=== PATIENT | male | born 1950 | race Caucasian/White ===

== ENCOUNTER → 2018-11-24 | Outpatient (CLI) | payer MEDICARE ==
--- NOTE | 2018-11-24 14:35 | CT ---
EXAMINATION TYPE: CT abdomen pelvis wo con DATE OF EXAM: 11/24/2018 COMPARISON: 01/31/2016 INDICATION: Liver mass DLP: 833.00 mGycm, Automated exposure control for dose reduction was used. CONTRAST: 0 mL of Isovue 300. Study performed without Oral Contrast TECHNIQUE: Axial images were obtained from above the diaphragm to the pubic rami in the axial plane a t 5 mm thick sections. Reconstructed images are reviewed on the computer in the coronal plane. FINDINGS: Limited CT sections are obtained the lung bases. The lung bases are clear. CT ABDOMEN: Liver: No discrete mass or cyst is evident within the liver. Study is without intravenous contrast wh ich may cause limitation. Spleen: Normal Pancreas: Normal Adrenal glands: The adrenal glands are normal. Gallbladder: Normal Kidneys: Perinephric stranding is present bilaterally. No masses are evident. No hydronephrosis is pr esent. There is a 2.3 cm cyst along the inferior medial pole of the left kidney measuring 0 Hounsfi eld units. Delayed images were obtained through the kidneys, which remain unremarkable. Aorta: Vascular calcification is within the aorta. Inferior vena cava: Normal. CT PELVIS: Mesenteric hernia is in the periumbilical region with an opening 1.0 cm. Loops of bowel within the abdomen and pelvis are normal. There are loops of bowel which are incom pletely distended or lack oral contrast limiting their evaluation. Appendix: Not identified. No suspicious tubular structures or inflammatory changes are evident. Urinary bladder: Normal. Genitourinary structures: Prostate is unremarkable. Osseous structures: No suspicious lytic or sclerotic lesions. IMPRESSIONS: 1. No suspicious changes within the liver. Study is noncontrast causing limitation. 2. Left renal cyst.
== END | disposition home or self-care (01) ==
LOC: RADCTMAIN 07:19
PROVIDERS: ATTEND Surgery Plastic and Reconstructive Surgery
DX: N28.1 Cyst of kidney, acquired (principal)
CPT/HCPCS: 74176

== ENCOUNTER 2019-06-17 08:03 | Day surgery (SDC) | payer MEDICARE ==
[2019-06-14 14:03] VITALS: BMI 30.7
--- NOTE | 2019-06-17 07:40 | P.GSHP ---
History of Present Illness H&P Date: 06/17/19 CHIEF COMPLAINT: Colon screen HISTORY OF PRESENT ILLNESS: The patient is a 69-year-old male who presents for colon screen. Lower endoscopy was offered for further evaluation and management. PAST MEDICAL HISTORY: Please see list. PAST SURGICAL HISTORY: Please see list. MEDICATIONS: Please see list. ALLERGIES: Please see list. SOCIAL HISTORY: No illicit drug use FAMILY HISTORY: No reports of Crohn disease or ulcerative colitis. REVIEW OF ORGAN SYSTEMS: CONSTITUTIONAL: No reports of fevers or chills. PHYSICAL EXAM: VITAL SIGNS: Stable GENERAL: Well-developed pleasant in no acute distress. HEENT: No scleral icterus. Extraocular movements grossly intact. Moist buccal mucosa. NECK: Supple without lymphadenopathy. CHEST: Unlabored respirations. Equal bilateral excursions. CARDIOVASCULAR: Regular rate and rhythm. Distal 2+ pulses. ABDOMEN: Soft, nontender, nondistended. MUSCULOSKELETAL: No clubbing, cyanosis, or edema. ASSESSMENT: 1. Colon screen. PLAN: 1. Recommend proceeding with a lower endoscopy Past Medical History Past Medical History: Cancer, GERD/Reflux, Hypertension Additional Past Medical History / Comment(s): gout. prostate cancer. born with heart defect History of Any Multi-Drug Resistant Organisms: None Reported Past Surgical History: Appendectomy, Cholecystectomy, Heart Catheterization, Hernia Repair, Prostate Surgery, Tonsillectomy Additional Past Surgical History / Comment(s): hemorroids Smoking Status: Former smoker - Past Family History Father Family Medical History: Cancer Additional Family Medical History / Comment(s): lung cancer Medications and Allergies Home Medications Medication Instructions Recorded Confirmed Type cloNIDine HCL [Catapres] 0.3 mg PO TID 04/18/14 06/14/19 History Allopurinol [Zyloprim] 100 mg PO BID 06/14/19 06/14/19 History Cholecalciferol [Vitamin D3 (25 1,000 unit PO DAILY 06/14/19 06/14/19 History Mcg = 1000 Iu)] Lisinopril [Zestril] 20 mg PO DAILY 06/14/19 06/14/19 History Metoprolol Succinate (ER) [Toprol 50 mg PO DAILY 06/14/19 06/14/19 History Xl] Multivitamins, Thera [Multivitamin 1 tab PO DAILY 06/14/19 06/14/19 History (formulary)] Omeprazole [PriLOSEC] 40 mg PO DAILY 06/14/19 06/14/19 History predniSONE 10 mg PO DAILY 06/14/19 06/14/19 History Allergies Allergy/AdvReac Type Severity Reaction Status Date / Time No Known Allergies Allergy Verified 06/14/19 13:48
[~2019-06-17 08:03] MED LIST: LACTATED RINGERS 1,000 ML IV SCH
[2019-06-17 08:23] VITALS: TEMP 97.7
[2019-06-17] MEDS ORDERED: LIDOCAINE 1% INJ 10MG/ML (20 ML MDV) ONE (08:33)
[2019-06-17] MEDS ORDERED: LIDOCAINE 1% (10MG/ML) FOR IV START INTRADERMA ONE (08:33)
[2019-06-17] MEDS ORDERED: PROPOFOL 10 MG/ML 20 ML VIAL IV ONE (08:33)
[2019-06-17 08:59] VITALS: RESP 16
[2019-06-17] MEDS ORDERED: SIMETHICONE 80 MG CHEWABLE PO STA (09:17)
[2019-06-17] MEDS ORDERED: METOCLOPRAMIDE 5 MG/ML 2 ML VIAL IVP STA (09:17)
--- NOTE | 2019-06-17 09:27 | P.PCN ---
Date of Procedure: 06/17/19 Description of Procedure: PREOPERATIVE DIAGNOSIS: Colonoscopy screening, first POSTOPERATIVE DIAGNOSIS: Colonoscopy screening, first Internal and external prolapsed hemorrhoid, grade 4 OPERATION: Colonoscopy to the ileocecal valve and appendiceal orifice. SURGEON: Carly Zaragoza MD. ANESTHESIA: MAC. INDICATIONS: The patient is a 69-year-old female who presents for his first colonoscopy screening. Benefits and risks were described and informed consent was obtained. DESCRIPTION OF PROCEDURE: The patient had undergone Suprep. He had been brought into the operating room and laid in the left lateral decubitus position. After adequate intravenous sedation, the rectum was examined with 2% lidocaine jelly. Large external hemorrhoids were encountered of the left lateral cushion. The rectal tone was within normal limits. No lesions were palpated in the rectal vault. An Olympus colonoscope was advanced until the ileocecal valve and appendiceal orifice were clearly viewed. The prep was excellent with clear visualization of the mucosal folds. The scope was removed with visualization of each mucosal fold. No scattered diverticulosis was encountered. No colonic polyps were found. No evidence of focal colitis was found. Retroflexion of the scope demonstrated grade 4 internal hemorrhoids with recent inflammation or bleeding. The colon was desufflated. The patient had tolerated the procedure well. Withdrawal time was over 6 minutes. FINDINGS: Aronchick preparation quality scale 1 (1-5) Internal hemorrhoids, grade 4, left lateral cushion External prolapsed hemorrhoids, grade 4 No arteriovenous malformations. No adenomatous polyps. No focal colitis. No sigmoid diverticulosis RECOMMENDATIONS: Lower endoscopy in 10 years, 2030 or Cologaurd Plan - Discharge Summary Discharge Rx Participant: Yes New Discharge Prescriptions: Continue cloNIDine HCL [Catapres] 0.3 mg PO TID Multivitamins, Thera [Multivitamin (formulary)] 1 tab PO DAILY Cholecalciferol [Vitamin D3 (25 Mcg = 1000 Iu)] 1,000 unit PO DAILY Metoprolol Succinate (ER) [Toprol XL] 50 mg PO DAILY Allopurinol [Zyloprim] 100 mg PO BID Omeprazole [PriLOSEC] 40 mg PO DAILY Lisinopril [Zestril] 20 mg PO DAILY predniSONE 10 mg PO DAILY Discharge Medication List cloNIDine HCL [Catapres] 0.3 mg PO TID 04/18/14 [History] Allopurinol [Zyloprim] 100 mg PO BID 06/14/19 [History] Cholecalciferol [Vitamin D3 (25 Mcg = 1000 Iu)] 1,000 unit PO DAILY 06/14/19 [History] Lisinopril [Zestril] 20 mg PO DAILY 06/14/19 [History] Metoprolol Succinate (ER) [Toprol XL] 50 mg PO DAILY 06/14/19 [History] Multivitamins, Thera [Multivitamin (formulary)] 1 tab PO DAILY 06/14/19 [History] Omeprazole [PriLOSEC] 40 mg PO DAILY 06/14/19 [History] predniSONE 10 mg PO DAILY 06/14/19 [History] Follow up Appointment(s)/Referral(s): Carly Zaragoza MD [STAFF PHYSICIAN] - 06/22/19 Patient Instructions/Handouts: *Surgery [facility] - (Anesthesia) Endoscopy Discharge Instructions, Hemorrhoids (DC), Colonoscopy (DC) Activity/Diet/Wound Care/Special Instructions: Repeat colonoscopy 10 years, 2030 or Cologaurd. Please follow up in office regarding abdominal pain. Discharge Disposition: HOME SELF-CARE
[2019-06-17 09:43] VITALS: BP 168/87; PULSE 60
== END 2019-06-17 09:59 | disposition home or self-care (01) ==
LOC: ORWHC2ENDO 08:03
PROVIDERS: ATTEND Surgery Plastic and Reconstructive Surgery
DX: R19.7 Diarrhea, unspecified (principal); R19.4 Change in bowel habit; K64.3 Fourth degree hemorrhoids; K64.4 Residual hemorrhoidal skin tags; I10 Essential (primary) hypertension; K21.9 Gastro-esophageal reflux disease without esophagitis; M10.9 Gout, unspecified; Z79.52 Long term (current) use of systemic steroids; Z79.899 Other long term (current) drug therapy; Z87.891 Personal history of nicotine dependence; Z85.46 Personal history of malignant neoplasm of prostate; Z90.89 Acquired absence of other organs; Z90.49 Acquired absence of other specified parts of digestive tract; Z98.890 Other specified postprocedural states; Z80.1 Family history of malignant neoplasm of trachea, bronchus and lung
CPT/HCPCS: 45378; J2765; J2001; J2704

== ENCOUNTER → 2019-08-31 | Outpatient (CLI) | payer MEDICARE | END | disposition home or self-care (01) | LOC: LABWHC1 10:09 | PROVIDERS: ATTEND Surgery Plastic and Reconstructive Surgery | DX: Z11.59 Encounter for screening for other viral diseases (principal) | CPT/HCPCS: 87635 ==

== ENCOUNTER 2019-09-02 08:51 | Day surgery (SDC) | payer MEDICARE ==
[2019-09-01 08:28] VITALS: BMI 29.9
--- NOTE | 2019-09-01 21:23 | P.GSHP ---
History of Present Illness H&P Date: 09/02/19 CHIEF COMPLAINT: Ventral hernia HISTORY OF PRESENT ILLNESS: The patient is a 69-year-old male who presents with a history of swelling and pain along the abdomen from a hernia. Now he presents for surgical intervention. PAST MEDICAL HISTORY: Please see list. PAST SURGICAL HISTORY: Please see list. MEDICATIONS: Please see list. ALLERGIES: Please see list. SOCIAL HISTORY: History of alcoholism FAMILY HISTORY: No reports of Crohn disease or ulcerative colitis. REVIEW OF ORGAN SYSTEMS: CONSTITUTIONAL: No reports of fevers or chills. No reports of weight loss despite prior attempts. PHYSICAL EXAM: VITAL SIGNS: Stable GENERAL: Well-developed pleasant male in no acute distress. HEENT: No scleral icterus. Extraocular movements grossly intact. Moist buccal mucosa. NECK: Supple without lymphadenopathy. CHEST: Unlabored respirations. Equal bilateral excursions. CARDIOVASCULAR: Regular rate and rhythm. Distal 2+ pulses. ABDOMEN: Soft, nondistended. Palpable defect of the abdomen. No peritoneal signs. MUSCULOSKELETAL: No clubbing, cyanosis, or edema. ASSESSMENT: 1. Ventral hernia PLAN: 1. Recommend proceeding with robotic ventral hernia repair with mesh. 2. Benefits and risks of surgical intervention was discussed including possibility of open technique. 3. DVT prophylaxis. 4. Antibiotic prophylaxis. 5. He is high risk with history of alcoholism. Past Medical History Past Medical History: Cancer, GERD/Reflux, Hypertension Additional Past Medical History / Comment(s): gout. prostate cancer. born with heart defect History of Any Multi-Drug Resistant Organisms: None Reported Past Surgical History: Appendectomy, Cholecystectomy, Heart Catheterization, Hernia Repair, Prostate Surgery, Tonsillectomy Additional Past Surgical History / Comment(s): hemorrhoid sx. colonoscopy Past Anesthesia/Blood Transfusion Reactions: No Reported Reaction Smoking Status: Former smoker - Past Family History Father Family Medical History: Cancer Additional Family Medical History / Comment(s): lung cancer Medications and Allergies Home Medications Medication Instructions Recorded Confirmed Type cloNIDine HCL [Catapres] 0.3 mg PO BID 04/18/14 09/01/19 History Allopurinol [Zyloprim] 100 mg PO BID 06/14/19 09/01/19 History Cholecalciferol [Vitamin D3 (25 1,000 unit PO DAILY 06/14/19 09/01/19 History Mcg = 1000 Iu)] Lisinopril [Zestril] 20 mg PO DAILY 06/14/19 09/01/19 History Metoprolol Succinate (ER) [Toprol 50 mg PO DAILY 06/14/19 09/01/19 History XL] Multivitamins, Thera [Multivitamin 1 tab PO DAILY 06/14/19 09/01/19 History (formulary)] Omeprazole [PriLOSEC] 40 mg PO DAILY 06/14/19 09/01/19 History Magnesium 250 mg PO DAILY 09/01/19 09/01/19 History Allergies Allergy/AdvReac Type Severity Reaction Status Date / Time No Known Allergies Allergy Verified 09/01/19 08:19
[~2019-09-02 08:51] MED LIST changes: +GABAPENTIN 300 MG CAP PO STA; +HEPARIN SODIUM,PORCINE 5,000 UNIT/ML 1 ML VIAL SQ ONE; +HYDROmorphone 0.5 MG/0.5 ML SYRINGE IVP PRN; +LIDOCAINE 1% (10MG/ML) FOR IV START INTRADERMA PRN; +fentaNYL (PF) 50 MCG/ML 2 ML AMP IV PRN
[2019-09-02] MEDS ORDERED: TAMSULOSIN 0.4 MG CAP.ER.24H PO STA (09:15)
[2019-09-02] MEDS ORDERED: ACETAMINOPHEN TAB 500 MG TAB PO STA (09:15)
[2019-09-02] MEDS ORDERED: DEXAMETHASONE SOD PHOSPHATE 10 MG/ML 1 ML VIAL IV ONE (09:55)
[2019-09-02] MEDS ORDERED: ONDANSETRON 4 MG/2 ML VIAL IVP ONE (09:56)
[2019-09-02 10:00] LABS: Glucose,Whole Blood 109 mg/dL (75-99)
[2019-09-02 10:03] VITALS: RESP 16
[2019-09-02] MEDS ORDERED: BUPIVACAIN-EPI 0.25%-1:200,000 30 ML VIAL SQ ONE ×2 (11:56→12:23)
[2019-09-02] MEDS ORDERED: LIDOCAINE 1% INJ 10MG/ML (20 ML MDV) ONE (11:58)
[2019-09-02] MEDS ORDERED: fentaNYL (PF) 50 MCG/ML 2 ML AMP ONE (11:58)
[2019-09-02] MEDS ORDERED: MIDAZOLAM 2 MG/2 ML VIAL ONE (11:58)
[2019-09-02] MEDS ORDERED: SUCCINYLCHOLINE CHLORIDE 100 MG/5 ML SYR IV ONE (11:58)
[2019-09-02] MEDS ORDERED: GLYCOPYRROLATE 0.2 MG/ML 2 ML VIAL ONE (11:58)
[2019-09-02] MEDS ORDERED: NEOSTIGMINE 1 MG/ML 10 ML VIAL ONE (11:58)
[2019-09-02] MEDS ORDERED: PROPOFOL 10 MG/ML 20 ML VIAL IV ONE (11:58)
[2019-09-02] MEDS ORDERED: ROCURONIUM BROMIDE 10 MG/ML 5 ML VIAL IV ONE (11:58)
[2019-09-02 12:08] LABS: Basophils % (A) 0 %; Eosinophils # (A) 0.1 k/uL (0-0.7); Eosinophils % (A) 2 %; HCT 39.4 % (39.0-53.0); Lymphocytes # (A) 1.1 k/uL (1.0-4.8); Lymphocytes % (A) 17 %; MCH 31.7 pg (25.0-35.0); MCHC 33.1 g/dL (31.0-37.0); Mean Platelet Volume 8.4; Monocytes # (A) 0.5 k/uL (0-1.0); Monocytes % (A) 8 %; Neutrophils # (A) 4.4 k/uL (1.3-7.7); Neutrophils % (A) 70 %; Platelet Count 179 k/uL (150-450); RDW 12.5 % (11.5-15.5); WBC 6.2 k/uL (3.8-10.6)
[2019-09-02 12:13] LABS: Albumin 3.8 g/dL (3.5-5.0); Calcium 8.7 mg/dL (8.4-10.2); Potassium 4.3 mmol/L (3.5-5.1); Total Protein 6.5 g/dL (6.3-8.2)
[2019-09-02] MEDS ORDERED: LACTATED RINGERS 1,000 ML IV ONE (12:48)
[2019-09-02 13:09] VITALS: TEMP 97.3
[2019-09-02] MEDS: HYDROmorphone 1 MG/ML 1 ML SYRINGE IVP ONE ×2 (13:18→13:27)
--- NOTE | 2019-09-02 13:37 | P.OP ---
Date of Procedure: 09/02/19 Description of Procedure: SURGEON: CARLY ZARAGOZA MD PREOPERATIVE DIAGNOSES: 1. Initial umbilical hernia with incarceration 2. Diabetes type 2, non-insulin dependent 3. Obesity due to excess calories, BMI 31.2 4. Gout 5. Hypertensive heart disease POSTOPERATIVE DIAGNOSES: 1. Initial umbilical hernia with incarceration 2. Diabetes type 2, non-insulin dependent 3. Obesity due to excess calories, BMI 31.2 4. Gout 5. Hypertensive heart disease OPERATION: 1. Robotic-assisted da Kristian Xi laparoscopic repair of initial incarcerated umbilical hernia 3 cm without mesh ANESTHESIA: General with local ESTIMATED BLOOD LOSS: 5 mL. SPECIMENS: None. COMPLICATIONS: None. FINDINGS: 1. Initial incarcerated umbilical hernia, 1 cm fascial defect with contents of pre-peritoneal fat. INDICATIONS: The patient is a 69-year-old male who presents with initial umbilical hernia. Surgical intervention with laparoscopic versus robotic and open techniques were reviewed. Placement of mesh was also reviewed. Benefits and risks were thoroughly described. Informed consent was obtained. DESCRIPTION OF PROCEDURE: The patient was brought into the operating room and laid in supine position. After general induction, the abdomen had been prepped and draped in standard sterile fashion. Ioban draping was also placed. Prior to incision, a timeout protocol was confirmed with surgical team regarding the patient's name including procedures to be performed. The robot was primed prior to the procedure. A field block using local anesthetic was placed along hernia site including the proposed port sites. Initial incision was made with an #11 blade along the left upper quadrant. A 0 degree 5 mm laparoscopic trocar entry was performed. Diagnostic laparoscopy demonstrated an incarcerated umbilical hernia. Three 8 mm trocars were placed along the right lateral abdominal wall. Placements of the ports were 15 cm from the target anatomy and 9 cm apart. The da Kristian Xi robot was previously primed, prepped and draped then docked along the left side of the patient. I then sat at the robot Da Kristian Xi console where working arms of the robot were scissors, needle truck driver flatbed, and graspers placed by the child welfare assistant. A 12 mm port was placed along the right upper quadrant for exchange of needles. Attention was brought to the umbilicus where an incarcerated umbilical hernia was identified containing fat and omentum. The incarcerated contents was reduced as the peritoneal fat was cleaned from the abdominal wall. Next, hemostasis was checked with cautery. The hernia defect of 1-cm was oversewn using #1 VLOC with fascial imbrication 3. A final endoscopic imaging was obtained. All instruments and pneumoperitoneum were evacuated from the abdominal cavity. The da Kristian Xi robot was undocked from the patient. I re-scrubbed into the case for closure of incisions. An umbilical dressing using 4 x 4 and Tegaderm was placed. The incisions were reapproximated using 4-0 Monocryl in an interrupted subcuticular fashion. Exofin liquid glue was applied to the skin after cleansing the skin with normal saline and dilute hydrogen peroxide. An abdominal binder was placed. At the end of the procedure, needle, sponge, and instrument count had been verified correct by surgical nurse practitioner. The patient was taken to the postanesthesia care unit in stable condition. Plan - Discharge Summary Discharge Rx Participant: No New Discharge Prescriptions: New Acetaminophen Tab [Tylenol Tab] 1,000 mg PO Q6HR PRN #30 tablet PRN Reason: Pain Hydrocodone/Acetaminophen [[place] 5-325] 1 - 2 each PO Q6HR PRN #10 tab PRN Reason: Pain Continue cloNIDine HCL [Catapres] 0.3 mg PO BID Multivitamins, Thera [Multivitamin (formulary)] 1 tab PO DAILY Cholecalciferol [Vitamin D3 (25 Mcg = 1000 Iu)] 1,000 unit PO DAILY Metoprolol Succinate (ER) [Toprol XL] 50 mg PO DAILY Allopurinol [Zyloprim] 100 mg PO BID Omeprazole [PriLOSEC] 40 mg PO DAILY Lisinopril [Zestril] 20 mg PO DAILY Magnesium 250 mg PO DAILY Discharge Medication List cloNIDine HCL [Catapres] 0.3 mg PO BID 04/18/14 [History] Allopurinol [Zyloprim] 100 mg PO BID 06/14/19 [History] Cholecalciferol [Vitamin D3 (25 Mcg = 1000 Iu)] 1,000 unit PO DAILY 06/14/19 [History] Lisinopril [Zestril] 20 mg PO DAILY 06/14/19 [History] Metoprolol Succinate (ER) [Toprol XL] 50 mg PO DAILY 06/14/19 [History] Multivitamins, Thera [Multivitamin (formulary)] 1 tab PO DAILY 06/14/19 [History] Omeprazole [PriLOSEC] 40 mg PO DAILY 06/14/19 [History] Magnesium 250 mg PO DAILY 09/01/19 [History] Acetaminophen Tab [Tylenol Tab] 1,000 mg PO Q6HR PRN #30 tablet 09/02/19 [Rx] Hydrocodone/Acetaminophen [[place] 5-325] 1 - 2 each PO Q6HR PRN #10 tab 09/02/19 [Rx] Follow up Appointment(s)/Referral(s): Carly Zaragoza MD [STAFF PHYSICIAN] - 09/07/19 Patient Instructions/Handouts: Abdominal Binder (DC), Laparoscopic Herniorrhap hy (DC) Activity/Diet/Wound Care/Special Instructions: Wear abdominal binder at all times No lifting over 4 pounds in 4 weeks until October 02. August shower. No bath tub soaks for two weeks until September 15. Diet as tolerated. No driving while on narcotics Use Tylenol scheduled for the next 24-48 hours for best pain relief. Use ice along incisions for the today to prevent swelling. Discharge Disposition: HOME SELF-CARE
[2019-09-02] MEDS ORDERED: HYDROcodone/APAP 5-325MG 1 EACH TAB PO ONE (14:30)
[2019-09-02 15:05] VITALS: BP 143/91; PULSE 92
== END 2019-09-02 15:48 | disposition home or self-care (01) ==
LOC: OR 08:51
PROVIDERS: ATTEND Surgery Plastic and Reconstructive Surgery
DX: K42.0 Umbilical hernia with obstruction, without gangrene (principal); I11.9 Hypertensive heart disease without heart failure; E11.9 Type 2 diabetes mellitus without complications; E66.09 Other obesity due to excess calories; M10.9 Gout, unspecified; K21.9 Gastro-esophageal reflux disease without esophagitis; Q24.9 Congenital malformation of heart, unspecified; Z68.31 Body mass index [BMI] 31.0-31.9, adult; Z79.899 Other long term (current) drug therapy; Z87.891 Personal history of nicotine dependence; Z90.49 Acquired absence of other specified parts of digestive tract; Z85.46 Personal history of malignant neoplasm of prostate; Z80.1 Family history of malignant neoplasm of trachea, bronchus and lung
CPT/HCPCS: 80053; 85025; 49653; J2250; J1100; J2710; J0690; J2405; J2001; J3010; J1170; J0330; J2704

== ENCOUNTER 2019-11-15 10:18 | Emergency (ER) | payer MEDICARE ==
[2019-11-15] MEDS ORDERED: Acetaminophen-Codeine 300-30mg TAB PO STA (10:36)
[2019-11-15] MEDS ORDERED: DIPH,PERTUS(ACELL)TETVAC-LF 0.5 ML VIAL IM ONE (10:37)
--- NOTE | 2019-11-15 10:46 | ED ---
Upper Extremity HPI - General Source: patient, RN notes reviewed, old records reviewed Mode of arrival: ambulatory Limitations: no limitations <Reynaldo Carrasquillo - Last Filed: 11/15/19 11:59> <Sabiha Flores - Last Filed: 11/16/19 15:52> - General Chief Complaint: Extremity Injury, Upper Stated Complaint: fall/arm pain-1 wk ago Time Seen by Provider: 11/15/19 10:24 - History of Present Illness Initial Comments: This a 69-year-old male presents emergency Department chief complaint of left arm pain. Patient states he fell one week ago in his yard. Patient does admit that he was intoxicated does not remember fall. Patient's complaint of continuation of left elbow left shoulder pain with decreased range of motion. He states there is a wound which is been healing swelling has been improving. He is unsure when his last tetanus was. Patient denies any paresthesias. Patient states pain rates from the shoulder down to his hand. Patient has not been evaluated for this fall denies any head injury, denies neck, back pain. (Reynaldo Carrasquillo) - Related Data Home Medications Medication Instructions Recorded Confirmed Cholecalciferol [Vitamin D3 (25 1,000 unit PO DAILY 06/14/19 11/15/19 Mcg = 1000 Iu)] Metoprolol Succinate (ER) [Toprol 50 mg PO DAILY 06/14/19 11/15/19 XL] Multivitamins, Thera [Multivitamin 1 tab PO DAILY 06/14/19 11/15/19 (formulary)] Omeprazole [PriLOSEC] 40 mg PO DAILY 06/14/19 11/15/19 allopurinoL [Zyloprim] 100 mg PO BID 06/14/19 11/15/19 lisinopriL [Zestril] 20 mg PO DAILY 06/14/19 11/15/19 Magnesium 250 mg PO DAILY 09/01/19 11/15/19 cloNIDine HCL [Catapres] 0.2 mg PO BID 11/15/19 11/15/19 Previous Rx's Medication Instructions Recorded Cephalexin [Keflex] 500 mg PO Q6HR #40 cap 11/15/19 Allergies Allergy/AdvReac Type Severity Reaction Status Date / Time No Known Allergies Allergy Verified 11/15/19 11:01 Review of Systems ROS Other: All systems not noted in ROS Statement are negative. <Reynaldo Carrasquillo - Last Filed: 11/15/19 11:59> ROS Other: All systems not noted in ROS Statement are negative. <Sabiha Flores - Last Filed: 11/16/19 15:52> ROS Statement: Those systems with pertinent positive or pertinent negative responses have been documented in the HPI. Past Medical History Past Medical History: Cancer, GERD/Reflux, Hypertension Additional Past Medical History / Comment(s): gout, elim ira,prostate cancer,born with heart defect History of Any Multi-Drug Resistant Organisms: None Reported Past Surgical History: Appendectomy, Cholecystectomy, Heart Catheterization, Hernia Repair, Prostate Surgery, Tonsillectomy Additional Past Surgical History / Comment(s): hemorroids Past Psychological History: No Psychological Hx Reported Smoking Status: Never smoker Past Alcohol Use History: Daily Past Drug Use History: None Reported - Past Family History Father Family Medical History: Cancer Additional Family Medical History / Comment(s): lung cancer <LaineyReynaldo bhakta - Last Filed: 11/15/19 11:59> General Exam General appearance: alert, in no apparent distress Head exam: Present: atraumatic, normocephalic, normal inspection Eye exam: Present: normal appearance, PERRL, EOMI. Absent: scleral icterus, conjunctival injection, periorbital swelling Neck exam: Present: normal inspection, full ROM. Absent: tenderness, meningismus, lymphadenopathy Respiratory exam: Present: normal lung sounds bilaterally. Absent: respiratory distress, wheezes, rales, rhonchi, stridor Cardiovascular Exam: Present: regular rate, normal rhythm, normal heart sounds. Absent: systolic murmur, diastolic murmur, rubs, gallop, clicks Extremities exam: Present: other (Tenderness of the left proximal and distal humeral region, left arm is neurovascularly intact there isn't 3 x 3cm healing wound on the left proximal forearm there is no skin swelling left elbow and mild erythema) Skin exam: Present: warm, dry, intact, normal color. Absent: rash <Reynaldo Carrasquillo - Last Filed: 11/15/19 11:59> Course Vital Signs 11/15/19 11/15/19 10:27 12:20 Temperature 98.5 F 98 F Pulse Rate 99 79 Respiratory 18 16 Rate Blood Pressure 154/109 148/78 O2 Sat by Pulse 97 97 Oximetry Medical Decision Making <Reynaldo Carrasquillo - Last Filed: 11/15/19 11:59> <Sabiha Flores - Last Filed: 11/16/19 15:52> - Medical Decision Making X-rays were reviewed no obvious fracture. Patient we placed a sling for concerns of ligamentous injury. Patient also has a bite wound was started on antibiotics. There is no concern for septic joint at this time. Patient was placed on Keflex will follow-up with orthopedics and return for any worsening symptoms. (Reynaldo Carrasquillo) I was available for consultation in the emergency department. The history and physical exam were done by the midlevel provider. I was consulted for this patients care. I reviewed the case with the midlevel provider and based on their presentation of the patient, I agree with the assessment, medical decision making and plan of care as documented. Chart was dictated using [employer] dictation software. Attempts were made to correct any dictation errors however some typographical errors may persist. Patient was seen during a national state of emergency due to the Covid-19 pandemic. (Sabiha Flores) Disposition Is patient prescribed a controlled substance at d/c from ED?: No Time of Disposition: 12:01 <Reynaldo Carrasquillo - Last Filed: 11/15/19 11:59> <Sabiha Flores - Last Filed: 11/16/19 15:52> Clinical Impression: Strain of left elbow, Left shoulder strain, Left arm cellulitis Disposition: HOME SELF-CARE Condition: Stable Instructions (If sedation given, give patient instructions): Elbow Sprain (ED) Additional Instructions: Please return to the Emergency Department if symptoms worsen or any other concerns. Prescriptions: Cephalexin [Keflex] 500 mg PO Q6HR #40 cap Referrals: Zhou Duval DO [Primary Care Provider] - 1-2 days Reynaldo Acharya DO [Doctor of Osteopathic Medicine] - 1-2 days
--- NOTE | 2019-11-15 11:18 | XR ---
EXAMINATION TYPE: XR humerus LT DATE OF EXAM: 11/15/2019 CLINICAL HISTORY: pain TECHNIQUE: Frontal and lateral images of the left humerus are obtained. COMPARISON: None. FINDINGS: There is no acute fracture/dislocation evident. There is evidence of calcific tendinopathy . Mild AC joint arthropathy. The overlying soft tissue appears unremarkable. IMPRESSION: There is no acute fracture or dislocation. ICD 10 NO FRACTURE, INITIAL EVALUATION
--- NOTE | 2019-11-15 11:19 | XR ---
EXAMINATION TYPE: XR elbow complete LT DATE OF EXAM: 11/15/2019 CLINICAL HISTORY: pain TECHNIQUE: Frontal, lateral and oblique images of the left elbow are obtained. COMPARISON: None. FINDINGS: There is no acute fracture/dislocation evident of the elbow. No abnormal fat pad signs ar e seen. Soft tissue swelling noted. IMPRESSION: There is no acute fracture or dislocation of the elbow. ICD 10 NO FRACTURE, INITIAL EVALUATION
[2019-11-15] MEDS ORDERED: traMADol 50 MG STARTER PACK 3 TAB BTL PO STA (11:59)
[2019-11-15 12:21] VITALS: BP 148/78; PULSE 79; RESP 16; TEMP 98
== END 2019-11-15 12:20 | disposition home or self-care (01) ==
LOC: EC 10:18
DX: S46.812A Strain of other muscles, fascia and tendons at shoulder and upper arm level, left arm, initial encounter (principal); S46.912A Strain of unspecified muscle, fascia and tendon at shoulder and upper arm level, left arm, initial encounter; L03.114 Cellulitis of left upper limb; K21.9 Gastro-esophageal reflux disease without esophagitis; I10 Essential (primary) hypertension; Z23 Encounter for immunization; Z79.899 Other long term (current) drug therapy; Z85.46 Personal history of malignant neoplasm of prostate; W19.XXXA Unspecified fall, initial encounter; Y92.096 Garden or yard of other non-institutional residence as the place of occurrence of the external cause
CPT/HCPCS: 90471; 90715; 99284

== ENCOUNTER → 2019-12-16 | Outpatient (CLI) | payer MEDICARE ==
--- NOTE | 2019-12-16 12:31 | MR ---
EXAMINATION TYPE: MR shoulder LT wo con DATE OF EXAM: 12/16/2019 COMPARISON: None HISTORY: 69-year-old male Left Shoulder Pain TECHNIQUE: Multiplanar, multisequence imaging of the left shoulder is performed without contrast. FINDINGS: The long head biceps tendon appears intact and remains appropriately situated along the bicipital yogesh ove. Mild diffuse synovial fluid is noted. Heterogeneous signal of the subscapularis tendon which appears intact. Diffuse bursal sided fraying and tearing of both supraspinatus and infraspinatus tendons. Some portio ns such as at the junction of the supraspinatus and infraspinatus tendons show tearing as deep as 50% of the tendon thickness. No definite full-thickness extension is seen. Nuek-ua-[id number] effusion in the subacromial/subdeltoid bursa. Moderate to severe degenerative change at the acromioclavicular joint with small joint effusion, join t space narrowing, articular surface irregularity, and inferior spurring which contacts the underlyin g myotendinous junction of the supraspinatus. No atrophy of the rotator cuff musculature. Evaluation of the glenoid humeral joint shows mild thinning of superior humeral head articular cartil age. There is some degenerative signal within the superior labrum but no para labral cyst. No glenoid margareth ral joint effusion. No Hill-Sachs deformity or os acromiale. No suspicious bone marrow replacement. IMPRESSION: 1. Diffuse rotator cuff tendinosis. There is extensive bursal sided fraying and shallow bursal sided tearing throughout both supraspinatus and infraspinatus tendons. Some portions such as at the suprasp inatus/infraspinatus tendon junction show tearing as deep as 50% of the tendon thickness. No full-thi ckness tear is identified. No muscle atrophy. 2. Moderate to severe AC joint OA with mild impingement onto the underlying cuff. 3. Mild long head biceps tenosynovitis.
== END | disposition home or self-care (01) ==
LOC: RADMRIMAIN 10:58
PROVIDERS: ATTEND Orthopaedic Surgery
DX: M75.102 Unspecified rotator cuff tear or rupture of left shoulder, not specified as traumatic (principal); M19.012 Primary osteoarthritis, left shoulder; M25.812 Other specified joint disorders, left shoulder; M75.22 Bicipital tendinitis, left shoulder

== ENCOUNTER 2019-12-28 18:26 | Emergency (ER) | payer MEDICARE ==
[2019-12-28] MEDS ORDERED: KETOROLAC 15 MG/ML 1 ML VIAL IVP STA (19:03)
--- NOTE | 2019-12-28 19:08 | ED ---
Upper Extremity HPI - General Chief Complaint: Extremity Injury, Upper Stated Complaint: rt elbow pain Time Seen by Provider: 12/28/19 18:45 Source: patient Mode of arrival: ambulatory Limitations: no limitations - History of Present Illness Initial Comments: This is a 68-year-old male with a history of gout who states she's had right elbow pain for the past 2 days. He states that sharp and somewhat burning located over the dorsal aspect of the elbow. He states she's had decreased range of motion secondary to pain no fall no fevers chills sweats. He states he was on steroids for longtime but his doctor took him off of them. He states pain is very severe 02/28 severity he denies any other complaints he states this feels worse in his previous gout attacks. Complaint: Injury to:: right, elbow - Related Data Home Medications Medication Instructions Recorded Confirmed Cholecalciferol [Vitamin D3 (25 1,000 unit PO DAILY 06/14/19 11/15/19 Mcg = 1000 Iu)] Metoprolol Succinate (ER) [Toprol 50 mg PO DAILY 06/14/19 11/15/19 XL] Multivitamins, Thera [Multivitamin 1 tab PO DAILY 06/14/19 11/15/19 (formulary)] Omeprazole [PriLOSEC] 40 mg PO DAILY 06/14/19 11/15/19 allopurinoL [Zyloprim] 100 mg PO BID 06/14/19 11/15/19 lisinopriL [Zestril] 20 mg PO DAILY 06/14/19 11/15/19 Magnesium 250 mg PO DAILY 09/01/19 11/15/19 cloNIDine HCL [Catapres] 0.2 mg PO BID 11/15/19 11/15/19 Previous Rx's Medication Instructions Recorded Cephalexin [Keflex] 500 mg PO Q6HR #40 cap 11/15/19 Hydrocodone/Acetaminophen [[place] 1 each PO Q6HR PRN #20 tab 12/28/19 5-325] predniSONE [Deltasone] 20 mg PO BID #10 tab 12/28/19 Allergies Allergy/AdvReac Type Severity Reaction Status Date / Time No Known Allergies Allergy Verified 12/28/19 18:32 Review of Systems ROS Statement: Those systems with pertinent positive or pertinent negative responses have been documented in the HPI. ROS Other: All systems not noted in ROS Statement are negative. Past Medical History Past Medical History: Cancer, GERD/Reflux, Hypertension Additional Past Medical History / Comment(s): gout, cheesh-na,prostate cancer,born with heart defect, History of Any Multi-Drug Resistant Organisms: None Reported Past Surgical History: Appendectomy, Cholecystectomy, Heart Catheterization, Hernia Repair, Prostate Surgery, Tonsillectomy Additional Past Surgical History / Comment(s): hemorroids, Past Psychological History: No Psychological Hx Reported Smoking Status: Former smoker Past Alcohol Use History: Daily Past Drug Use History: None Reported - Past Family History Father Family Medical History: Cancer Additional Family Medical History / Comment(s): lung cancer General Exam - General Exam Comments Initial Comments: This is a well-developed well-nourished awake alert oriented 3 male Limitations: no limitations General appearance: alert, anxious, in distress Head exam: Present: atraumatic, normocephalic, normal inspection Eye exam: Present: normal appearance, PERRL, EOMI. Absent: scleral icterus, conjunctival injection, periorbital swelling ENT exam: Present: normal exam, mucous membranes moist Neck exam: Present: normal inspection. Absent: tenderness, meningismus, lymphadenopathy Respiratory exam: Present: normal lung sounds bilaterally. Absent: respiratory distress, wheezes, rales, rhonchi, stridor Cardiovascular Exam: Present: regular rate, normal rhythm, normal heart sounds. Absent: systolic murmur, diastolic murmur, rubs, gallop, clicks GI/Abdominal exam: Absent: distended, tenderness, guarding, rebound, rigid Extremities exam: Present: tenderness, normal capillary refill, other (Tendernes s to palpation of the posterior aspect of the right elbow some localized increased temperature evidence of a small effusion.). Absent: pedal edema, joint swelling, calf tenderness Back exam: Present: normal inspection Neurological exam: Present: alert, oriented X3, CN II-XII intact Psychiatric exam: Present: normal affect, anxious Skin exam: Present: warm, dry, intact, normal color. Absent: rash Course Vital Signs 12/28/19 18:28 Temperature 99.9 F H Pulse Rate 95 Respiratory 17 Rate Blood Pressure 175/105 O2 Sat by Pulse 96 Oximetry Medical Decision Making - Medical Decision Making I did discuss the findings with the patient he is feeling improved he will be given a short course of medication for the pain control he is a follow-up with Dr. Xiong from orthopedics who is seen in the past. This has sling for the right arm. He is aware of his magnesium deficit. He does take magnesium at home I will recommend that he double dose for about a week. Additionally he do es demonstrate evidence of some renal insufficiency dehydration he is increase his oral fluids he has been told this by previous physicians. - Lab Data Result diagrams: 12/28/19 19:40 12/28/19 19:40 Lab Results 12/28/19 12/28/19 Range/Units 19:40 19:40 WBC 11.8 H (3.8-10.6) k/uL RBC 3.83 L (4.30-5.90) m/uL Hgb 11.8 L (13.0-17.5) gm/dL Hct 35.3 L (39.0-53.0) % MCV 92.3 (80.0-100.0) fL MCH 30.9 (25.0-35.0) pg MCHC 33.4 (31.0-37.0) g/dL RDW 12.8 (11.5-15.5) % Plt Count 195 (150-450) k/uL Neutrophils % 82 % Lymphocytes % 8 % Monocytes % 7 % Eosinophils % 1 % Basophils % 0 % Neutrophils # 9.7 H (1.3-7.7) k/uL Lymphocytes # 0.9 L (1.0-4.8) k/uL Monocytes # 0.8 (0-1.0) k/uL Eosinophils # 0.1 (0-0.7) k/uL Basophils # 0.0 (0-0.2) k/uL Sodium 137 (137-145) mmol/L Potassium 5.5 H (3.5-5.1) mmol/L Chloride 107 (98-107) mmol/L Carbon Dioxide 19 L (22-30) mmol/L Anion Gap 11 mmol/L BUN 22 H (9-20) mg/dL Creatinine 1.34 H (0.66-1.25) mg/dL Est GFR (CKD-EPI)AfAm 62 (>60 ml/min/1.73 sqM) Est GFR (CKD-EPI)NonAf 54 (>60 ml/min/1.73 sqM) Glucose 135 H (74-99) mg/dL Uric Acid 8.4 (3.5-8.5) mg/dL Calcium 9.3 (8.4-10.2) mg/dL Magnesium 1.1 L (1.6-2.3) mg/dL Total Bilirubin 1.0 (0.2-1.3) mg/dL AST 31 (17-59) U/L ALT 16 (4-49) U/L Alkaline Phosphatase 85 (38-126) U/L Creatine Kinase 53 L (55-170) U/L C-Reactive Protein 42.9 H (<10.0) mg/L Total Protein 7.1 (6.3-8.2) g/dL Albumin 4.2 (3.5-5.0) g/dL - Radiology Data Radiology results: report reviewed (Imaging reviewed no definite acute findings.), image reviewed Disposition Clinical Impression: Right elbow pain, Dehydration, Hypomagnesemia Disposition: HOME SELF-CARE Condition: Good Instructions (If sedation given, give patient instructions): Arthralgia (ED), Dehydration (ED), Hypomagnesemia (ED) Prescriptions: predniSONE [Deltasone] 20 mg PO BID #10 tab Hydrocodone/Acetaminophen [[place] 5-325] 1 each PO Q6HR PRN #20 tab PRN Reason: Pain Is patient prescribed a controlled substance at d/c from ED?: Yes Referrals: Zhou Duval DO [Primary Care Provider] - 1-2 days
[2019-12-28 19:53] LABS: Basophils % (A) 0 %; Eosinophils # (A) 0.1 k/uL (0-0.7); Eosinophils % (A) 1 %; HCT 35.3 % (39.0-53.0); HGB 11.8 gm/dL (13.0-17.5); Lymphocytes # (A) 0.9 k/uL (1.0-4.8); Lymphocytes % (A) 8 %; MCH 30.9 pg (25.0-35.0); MCHC 33.4 g/dL (31.0-37.0); MCV 92.3 fL (80.0-100.0); Mean Platelet Volume 8.1; Monocytes # (A) 0.8 k/uL (0-1.0); Monocytes % (A) 7 %; Neutrophils # (A) 9.7 k/uL (1.3-7.7); Neutrophils % (A) 82 %; Platelet Count 195 k/uL (150-450); RBC 3.83 m/uL (4.30-5.90); RDW 12.8 % (11.5-15.5); WBC 11.8 k/uL (3.8-10.6)
[2019-12-28 20:03] LABS: Albumin 4.2 g/dL (3.5-5.0); C Reactive Protein 42.9 mg/L (<10.0); Calcium 9.3 mg/dL (8.4-10.2); Magnesium 1.1 mg/dL (1.6-2.3); Potassium 5.5 mmol/L (3.5-5.1); Total Protein 7.1 g/dL (6.3-8.2); Uric Acid 8.4 mg/dL (3.5-8.5)
[2019-12-28] MEDS ORDERED: SODIUM CHLORIDE 0.9% 1,000 ML IV STA (20:13)
[2019-12-28] MEDS ORDERED: LORazepam 2 MG/ML INJ IV STA (20:13)
[2019-12-28] MEDS ORDERED: MAGNESIUM SULFATE-D5W PMX 1 GM in DEXTROSE/WATER 1 100ML.BAG IVPB ONE (20:19)
[2019-12-28] MEDS ORDERED: predniSONE 50 MG TAB PO STA (20:32)
--- NOTE | 2019-12-28 20:38 | ED ---
Medical Decision Making - Lab Data Result diagrams: 12/28/19 19:40 12/28/19 19:40 Lab Results 12/28/19 12/28/19 Range/Units 19:40 19:40 WBC 11.8 H (3.8-10.6) k/uL RBC 3.83 L (4.30-5.90) m/uL Hgb 11.8 L (13.0-17.5) gm/dL Hct 35.3 L (39.0-53.0) % MCV 92.3 (80.0-100.0) fL MCH 30.9 (25.0-35.0) pg MCHC 33.4 (31.0-37.0) g/dL RDW 12.8 (11.5-15.5) % Plt Count 195 (150-450) k/uL Neutrophils % 82 % Lymphocytes % 8 % Monocytes % 7 % Eosinophils % 1 % Basophils % 0 % Neutrophils # 9.7 H (1.3-7.7) k/uL Lymphocytes # 0.9 L (1.0-4.8) k/uL Monocytes # 0.8 (0-1.0) k/uL Eosinophils # 0.1 (0-0.7) k/uL Basophils # 0.0 (0-0.2) k/uL Sodium 137 (137-145) mmol/L Potassium 5.5 H (3.5-5.1) mmol/L Chloride 107 (98-107) mmol/L Carbon Dioxide 19 L (22-30) mmol/L Anion Gap 11 mmol/L BUN 22 H (9-20) mg/dL Creatinine 1.34 H (0.66-1.25) mg/dL Est GFR (CKD-EPI)AfAm 62 (>60 ml/min/1.73 sqM) Est GFR (CKD-EPI)NonAf 54 (>60 ml/min/1.73 sqM) Glucose 135 H (74-99) mg/dL Uric Acid 8.4 (3.5-8.5) mg/dL Calcium 9.3 (8.4-10.2) mg/dL Magnesium 1.1 L (1.6-2.3) mg/dL Total Bilirubin 1.0 (0.2-1.3) mg/dL AST 31 (17-59) U/L ALT 16 (4-49) U/L Alkaline Phosphatase 85 (38-126) U/L Creatine Kinase 53 L (55-170) U/L C-Reactive Protein 42.9 H (<10.0) mg/L Total Protein 7.1 (6.3-8.2) g/dL Albumin 4.2 (3.5-5.0) g/dL Disposition Clinical Impression: Right elbow pain, Dehydration, Hypomagnesemia Disposition: HOME SELF-CARE Condition: Good Instructions (If sedation given, give patient instructions): Dehydration (ED), Hypomagnesemia (ED), Arthralgia (ED) Prescriptions: predniSONE [Deltasone] 20 mg PO BID #10 tab Hydrocodone/Acetaminophen [[place] 5-325] 1 each PO Q6HR PRN #20 tab PRN Reason: Pain Is patient prescribed a controlled substance at d/c from ED?: Yes When asked, does pt state using other controlled substances?: No If prescribed controlled substance>3 days was MAPS reviewed?: Prescribed <3 Days If opioid is for acute pain is fill amount 7 days or less?: Yes If Rx opioid, was Start Talking consent form obtained?: Yes Referrals: Zhou Duval DO [Primary Care Provider] - 1-2 days
[2019-12-28 21:10] VITALS: RESP 16
--- NOTE | 2019-12-28 21:17 | XR ---
EXAMINATION TYPE: XR elbow complete RT DATE OF EXAM: 12/28/2019 COMPARISON: None HISTORY: Pain swelling TECHNIQUE: 4 view right elbow FINDINGS: Diffuse soft tissue swelling is at the olecranon and posterior to the distal humerus. Radius aligns normally with the humerus. No acute fractures are evident. There is elevation of the anterior fat pad. Elevation of posterior fat pad is evident. Some faint filemon cification may be posterior to the olecranon. IMPRESSION: 1. Joint effusion is present. No displaced fractures are identified. 2. Soft tissue swelling posterior olecranon and humerus. Correlate for bursitis. 3. Some calcium deposition within the bursa may be present.
[2019-12-28 21:36] VITALS: BP 132/78; PULSE 68; TEMP 98.2
== END 2019-12-28 21:35 | disposition home or self-care (01) ==
LOC: EC 18:26
DX: M25.521 Pain in right elbow (principal); E83.42 Hypomagnesemia; N28.9 Disorder of kidney and ureter, unspecified; E86.0 Dehydration; I10 Essential (primary) hypertension; K21.9 Gastro-esophageal reflux disease without esophagitis; H91.90 Unspecified hearing loss, unspecified ear; M10.9 Gout, unspecified; Z79.899 Other long term (current) drug therapy; Z87.891 Personal history of nicotine dependence; Z85.46 Personal history of malignant neoplasm of prostate
CPT/HCPCS: 36415; 80053; 82550; 83735; 84550; 85025; 86140; 87040; 73080; 99283; 96374; 96361; J1885; J7512

== ENCOUNTER → 2021-04-19 | Outpatient (CLI) | payer MEDICARE ==
--- NOTE | 2021-04-19 13:14 | MR ---
EXAMINATION TYPE: MR cervical spine wo con DATE OF EXAM: 04/19/2021 COMPARISON: None HISTORY: Neck pain, Headache TECHNIQUE: Multiplanar, multisequence images of the cervical spine were acquired without contrast. C2-C3: Degenerative disc disease with no canal stenosis or foraminal encroachment. Signal seen technology resource teacher ior to the odontoid is likely related to pannus formation. Could be followed on short-term basis. C3-C4: Processes and uncovertebral joint hypertrophy. Hypertrophic facet arthropathy noted with moder ate to severe bilateral foraminal encroachment. Posterior spondylosis and disc bulging with mild effa cement of thecal sac. Borderline canal stenosis. C4-C5: Degenerative disc disease with posterior disc bulging slightly greater paracentrally the right . There is a diminutive spinal canal compatible with mild central stenosis. C5-C6: Hypertrophic and degenerative changes with the disc bulging greater paracentrally and laterall y to the right. Uncovertebral joint projecting contributes to severe right-sided foraminal encroachme nt and mild left foraminal encroachment. C6-C7: Posterior spondylosis and disc bulging greater paracentrally and laterally to left with sever e left-sided foraminal encroachment and moderate right foraminal encroachment. Mild effacement of the filemon sac. C7-T1: No evidence for degenerative disc disease. No disc bulge/herniation or protrusion. No Canal stenosis. Foramina are patent bilaterally. Cervical segments are intact. There is normal alignment. Cervical spinal cord is of normal signal. Craniovertebral junction relationships are within normal limits. Mild heterogeneity of the marrow i s nonspecific. IMPRESSION: 1. Multilevel degenerative disc disease and hypertrophic changes of the facets and uncovertebral join ts result in multilevel significant foraminal encroachment as discussed above. 2. Multilevel disc bulging as discussed above with effacement of thecal sac. There is mild canal sten osis at C4-C5.
== END | disposition home or self-care (01) ==
LOC: RADMRIMAIN 08:31
PROVIDERS: ATTEND Internal Medicine
DX: M50.223 Other cervical disc displacement at C6-C7 level (principal); M47.812 Spondylosis without myelopathy or radiculopathy, cervical region; M48.02 Spinal stenosis, cervical region; M50.322 Other cervical disc degeneration at C5-C6 level
CPT/HCPCS: 72141

== ENCOUNTER 2021-06-26 09:48 | Emergency (ER) | payer MEDICARE ==
[2021-06-26 09:54] VITALS: BP 130/84; PULSE 78; RESP 18; TEMP 97.6
[2021-06-26] MEDS ORDERED: HYDROcodone/APAP 7.5-325MG 1 EACH TAB PO ONE (10:12)
--- NOTE | 2021-06-26 10:47 | ED ---
Extremity Problem HPI - General Chief complaint: Extremity Problem,Nontraumatic Stated complaint: leg swelling Time Seen by Provider: 06/26/21 10:02 Source: patient, family, RN notes reviewed Mode of arrival: ambulatory Limitations: no limitations - History of Present Illness Initial comments: This is a 71-year-old male who presents to the emergency room with right leg pain concerning for gout. Patient states he gets gout very frequently, most commonly in the lower extremities and the wrists. He finished a course of Prednisone in March for a gout flare up and has had mild symptoms since. 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 However, he was told that he could not continue this long-term. Since then, the gout has returned and occurs pretty frequently according to the patient. Over the last couple of days, his right leg pain has gotten much worse. He has been walking with a limp and is very tender to the touch, particularly in the right foot. He has noticed redness and swelling from the knee to the foot. Denies any fevers or chills. He has taken colchecine in the past for gout flares, however that caused a lot of stomach irritation and he has been treated with prednisone for flare ups every since. He has never taken indomethacin for acute flares. He is also on daily allopurinol as a preventative. Denies any history of gout with tophi. MD Complaint: extremity pain, extremity swelling Location: right, lower extremity, knee -: No fever Improves with: nothing Worsens with: weight bearing, walking, palpation Associated Symptoms: denies other symptoms - Related Data Home Medications Medication Instructions Recorded Confirmed Multivitamins, Thera [Multivitamin 1 tab PO DAILY 06/14/19 06/26/21 (formulary)] Omeprazole [PriLOSEC] 40 mg PO DAILY PRN 06/14/19 06/26/21 allopurinoL [Zyloprim] 100 mg PO DAILY 06/14/19 06/26/21 lisinopriL [Zestril] 20 mg PO DAILY 06/14/19 06/26/21 cloNIDine HCL [Catapres] 0.2 mg PO BID 11/15/19 06/26/21 Acetaminophen [Tylenol Arthritis] 1,300 mg PO DAILY 06/26/21 06/26/21 Allopurinol [Zyloprim] 300 mg PO DAILY 06/26/21 06/26/21 Ascorbic Acid [Vitamin C] 500 mg PO DAILY 06/26/21 06/26/21 Carvedilol [Coreg] 12.5 mg PO BID 06/26/21 06/26/21 Cholecalciferol [Vitamin D3 (25 50 mcg PO DAILY 06/26/21 06/26/21 Mcg = 1000 Iu)] Magnesium Oxide 400 mg PO BID 06/26/21 06/26/21 amLODIPine [Norvasc] 5 mg PO DAILY 06/26/21 06/26/21 Previous Rx's Medication Instructions Recorded Cephalexin [Keflex] 1,000 mg PO Q12HR 5 Days #20 cap 06/26/21 predniSONE [Deltasone] 40 mg PO DAILY 5 Days #10 tab 06/26/21 Allergies Allergy/AdvReac Type Severity Reaction Status Date / Time No Known Allergies Allergy Verified 06/26/21 10:44 Review of Systems ROS Statement: Those systems with pertinent positive or pertinent negative responses have been documented in the HPI. ROS Other: All systems not noted in ROS Statement are negative. Constitutional: Denies: fever, chills ENT: Denies: ear pain, throat pain Respiratory: Denies: cough, dyspnea Cardiovascular: Denies: chest pain, palpitations Gastrointestinal: Denies: abdominal pain, nausea, vomiting, diarrhea Genitourinary: Denies: urgency, dysuria Musculoskeletal: Reports: other (Right LE pain and swelling). Denies: back pain Skin: Reports: other (Erythema of the RLE) Neurological: Denies: headache Past Medical History Past Medical History: Cancer, GERD/Reflux, Hypertension Additional Past Medical History / Comment(s): gout, [place],prostate cancer,born with heart defect, History of Any Multi-Drug Resistant Organisms: None Reported Past Surgical History: Appendectomy, Cholecystectomy, Heart Catheterization, Hernia Repair, Prostate Surgery, Tonsillectomy Additional Past Surgical History / Comment(s): hemorroids, Past Psychological History: No Psychological Hx Reported Smoking Status: Former smoker Past Alcohol Use History: Daily Past Drug Use History: None Reported - Past Family History Father Family Medical History: Cancer Additional Family Medical History / Comment(s): lung cancer General Exam Limitations: no limitations General appearance: alert, in no apparent distress Head exam: Present: atraumatic, normocephalic, normal inspection Respiratory exam: Present: normal lung sounds bilaterally. Absent: respiratory distress, wheezes, rales, rhonchi, stridor Cardiovascular Exam: Present: regular rate, normal rhythm, normal heart sounds. Absent: systolic murmur, diastolic murmur, rubs, gallop, clicks Extremities exam: Present: other (Swelling and erythema from approximately the tibia to the right foot. Equisite tenderness to palption of the right foot, most prominent of the right great toe. ) Neurological exam: Present: alert, oriented X3, CN II-XII intact Psychiatric exam: Present: normal affect, normal mood Skin exam: Present: warm, dry, intact Course Vital Signs 06/26/21 09:51 Temperature 97.6 F Pulse Rate 78 Respiratory 18 Rate Blood Pressure 130/84 O2 Sat by Pulse 97 Oximetry Medical Decision Making - Medical Decision Making This is a 71-year-old male who presents to the emergency department for right lower extremity pain and swelling. Ultrasound Doppler of the right lower extremity obtained and did not visualize a DVT. Patient given a dose of [place] for pain. ESR, CRP, CBC, CMP, and uric acid obtained to further evaluate for gout. Given the patient's history of gout, chronic kidney disease, normal white blood cell count, and lack of fevers, this is most likely a gout attack as opposed to cellulitis or a septic joint. 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 Will discharge the patient with a Tylenol #3 starter pack and a prescription for Prednisone. Reminded the patient that Tylenol #3 may cause sleepiness or drowsiness and he should not drive or operate machinery while taking it. Will also treat with a course of Keflex in the unlikely event there is an associated infection. Return precautions reviewed in depth, the patient is instructed to return to the emergency department if symptoms worsen or do not improve. Patient verbalized understanding. This case was discussed in detail with the attending ED physician. Presentation, findings, and treatment plan discussed in detail as well. - Lab Data Result diagrams: 06/26/21 10:30 06/26/21 10:35 Lab Results 06/26/21 06/26/21 Range/Units 10:30 10:35 WBC 8.6 (3.8-10.6) k/uL RBC 4.28 L (4.30-5.90) m/uL Hgb 13.0 (13.0-17.5) gm/dL Hct 39.1 (39.0-53.0) % MCV 91.3 (80.0-100.0) fL MCH 30.5 (25.0-35.0) pg MCHC 33.4 (31.0-37.0) g/dL RDW 13.9 (11.5-15.5) % Plt Count 303 (150-450) k/uL MPV 7.7 Neutrophils % 65 % Lymphocytes % 23 % Monocytes % 6 % Eosinophils % 2 % Basophils % 0 % Neutrophils # 5.6 (1.3-7.7) k/uL Lymphocytes # 2.0 (1.0-4.8) k/uL Monocytes # 0.5 (0-1.0) k/uL Eosinophils # 0.1 (0-0.7) k/uL Basophils # 0.0 (0-0.2) k/uL ESR 62 H (0-15) mm/hr Sodium 138 (137-145) mmol/L Potassium 4.8 (3.5-5.1) mmol/L Chloride 103 (98-107) mmol/L Carbon Dioxide 24 (22-30) mmol/L Anion Gap 11 mmol/L BUN 40 H (9-20) mg/dL Creatinine 1.98 H (0.66-1.25) mg/dL Est GFR (CKD-EPI)AfAm 38 (>60 ml/min/1.73 sqM) Est GFR (CKD-EPI)NonAf 33 (>60 ml/min/1.73 sqM) Glucose 127 H (74-99) mg/dL Uric Acid 6.5 (3.5-8.5) mg/dL Calcium 9.8 (8.4-10.2) mg/dL Total Bilirubin 0.8 (0.2-1.3) mg/dL AST 26 (17-59) U/L ALT 18 (4-49) U/L Alkaline Phosphatase 90 (38-126) U/L C-Reactive Protein 1.6 H (<1.0) mg/dL Total Protein 7.0 (6.3-8.2) g/dL Albumin 4.2 (3.5-5.0) g/dL - Radiology Data Radiology results: report reviewed, image reviewed Disposition Clinical Impression: Gout attack Disposition: HOME SELF-CARE Instructions (If sedation given, give patient instructions): Low Purine Diet (ED), Gout (ED) Additional Instructions: Return to the emergency department if symptoms worsen or do not improve. Follow-up with your primary care provider in 1 to 2 days. Take the Prednisone and Keflex as prescribed. Do not drive or operate machinery when taking Tylenol #3. Prescriptions: predniSONE [Deltasone] 40 mg PO DAILY 5 Days #10 tab Cephalexin [Keflex] 1,000 mg PO Q12HR 5 Days #20 cap Is patient prescribed a controlled substance at d/c from ED?: No Referrals: Jamar Soares MD [Primary Care Provider] - 1-2 days
[2021-06-26 11:03] LABS: Basophils % (A) 0 %; Eosinophils # (A) 0.1 k/uL (0-0.7); Eosinophils % (A) 2 %; HCT 39.1 % (39.0-53.0); Lymphocytes % (A) 23 %; MCH 30.5 pg (25.0-35.0); MCHC 33.4 g/dL (31.0-37.0); MCV 91.3 fL (80.0-100.0); Mean Platelet Volume 7.7; Monocytes # (A) 0.5 k/uL (0-1.0); Monocytes % (A) 6 %; Neutrophils # (A) 5.6 k/uL (1.3-7.7); Neutrophils % (A) 65 %; Platelet Count 303 k/uL (150-450); RBC 4.28 m/uL (4.30-5.90); RDW 13.9 % (11.5-15.5); WBC 8.6 k/uL (3.8-10.6)
--- NOTE | 2021-06-26 11:09 | US ---
EXAMINATION TYPE: US venous doppler duplex LE RT DATE OF EXAM: 06/26/2021 11:00 AM COMPARISON: CLINICAL HISTORY: Swelling and erythema of the right leg and foot. No injury. Pain. SIDE PERFORMED: Right TECHNIQUE: The lower extremity deep venous system is examined utilizing real time linear array sonog hardeep with graded compression, doppler sonography and color-flow sonography. VESSELS IMAGED: Common Femoral Vein Deep Femoral Vein Greater Saphenous Vein * Femoral Vein Popliteal Vein Small Saphenous Vein * Proximal Calf Veins (* superficial vessels) There is normal flow, compressibility, vascular waveforms. Right Leg: Negative for DVT IMPRESSION: No evident deep venous thrombosis within the right lower extremity from the level of the knee centrally
[2021-06-26 11:15] LABS: Albumin 4.2 g/dL (3.5-5.0); C Reactive Protein 1.6 mg/dL (<1.0); Calcium 9.8 mg/dL (8.4-10.2); Potassium 4.8 mmol/L (3.5-5.1); Total Bilirubin 0.8 mg/dL (0.2-1.3); Uric Acid 6.5 mg/dL (3.5-8.5)
[2021-06-26] MEDS ORDERED: INDOMETHACIN 25 MG CAP PO STA ×2 (11:55→12:14)
[2021-06-26 12:57] LABS: Erythrocyte Sedimentation Rate 62 mm/hr (0-15)
[2021-06-26] MEDS ORDERED: ACET/COD 300 MG/30 MG STARTER PACK 6 TAB BTL PO STA (14:43)
== END 2021-06-26 15:50 | disposition home or self-care (01) ==
LOC: EC 09:48
DX: M10.9 Gout, unspecified (principal); K21.9 Gastro-esophageal reflux disease without esophagitis; I10 Essential (primary) hypertension; Z85.46 Personal history of malignant neoplasm of prostate; Z90.49 Acquired absence of other specified parts of digestive tract; Z87.891 Personal history of nicotine dependence
CPT/HCPCS: 36415; 80053; 84550; 85025; 85652; 86140; 99284

== ENCOUNTER 2021-07-13 10:55 | Emergency (ER) | payer MEDICARE ==
[2021-07-13 10:59] VITALS: RESP 18; TEMP 98.5
[2021-07-13] MEDS ORDERED: HYDROcodone/APAP 10-325MG 1 EACH TAB PO ONE (11:42)
--- NOTE | 2021-07-13 11:51 | ED ---
Extremity Problem HPI - General Chief complaint: Extremity Problem,Nontraumatic Stated complaint: Joint Swelling and pain Time Seen by Provider: 07/13/21 11:06 Source: patient, RN notes reviewed, old records reviewed Mode of arrival: ambulatory Limitations: no limitations - History of Present Illness Initial comments: 71-year-old male presents for his room today with complaints of total body joint aches. Patient reports a history of gout. He has been multiple specialist. Patient states recent emergency department earlier this month and prescribed short course of steroids. Laboratory medicine and did have some relief. 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 Patient states that he has been taking Tylenol for pain. He does have history of chronic kidney disease stage III. He denies any skin abrasions or redness of skin. Patient reports that his main pain is on his left hand and wrist, left ankle, and bilateral knees. - Related Data Home Medications Medication Instructions Recorded Confirmed Multivitamins, Thera [Multivitamin 1 tab PO DAILY 06/14/19 06/26/21 (formulary)] Omeprazole [PriLOSEC] 40 mg PO DAILY PRN 06/14/19 06/26/21 allopurinoL [Zyloprim] 100 mg PO DAILY 06/14/19 06/26/21 lisinopriL [Zestril] 20 mg PO DAILY 06/14/19 06/26/21 cloNIDine HCL [Catapres] 0.2 mg PO BID 11/15/19 06/26/21 Acetaminophen [Tylenol Arthritis] 1,300 mg PO DAILY 06/26/21 06/26/21 Allopurinol [Zyloprim] 300 mg PO DAILY 06/26/21 06/26/21 Ascorbic Acid [Vitamin C] 500 mg PO DAILY 06/26/21 06/26/21 Carvedilol [Coreg] 12.5 mg PO BID 06/26/21 06/26/21 Cholecalciferol [Vitamin D3 (25 50 mcg PO DAILY 06/26/21 06/26/21 Mcg = 1000 Iu)] Magnesium Oxide 400 mg PO BID 06/26/21 06/26/21 amLODIPine [Norvasc] 5 mg PO DAILY 06/26/21 06/26/21 Previous Rx's Medication Instructions Recorded Cephalexin [Keflex] 1,000 mg PO Q12HR 5 Days #20 cap 06/26/21 predniSONE [Deltasone] 40 mg PO DAILY 5 Days #10 tab 06/26/21 Acetaminophen-Codeine 300-30mg 1 tab PO Q4H PRN 3 Days #18 tablet 07/13/21 [Tylenol w/codeine #3] Indomethacin [Indocin] 50 mg PO DAILY #5 capsule 07/13/21 predniSONE [Deltasone] 20 mg PO DIRECTED #12 tab 07/13/21 Allergies Allergy/AdvReac Type Severity Reaction Status Date / Time No Known Allergies Allergy Verified 07/13/21 10:59 Review of Systems ROS Statement: Those systems with pertinent positive or pertinent negative responses have been documented in the HPI. ROS Other: All systems not noted in ROS Statement are negative. Past Medical History Past Medical History: Cancer, GERD/Reflux, Hypertension Additional Past Medical History / Comment(s): gout, [place],prostate cancer,born with heart defect, History of Any Multi-Drug Resistant Organisms: None Reported Past Surgical History: Appendectomy, Cholecystectomy, Heart Catheterization, Hernia Repair, Prostate Surgery, Tonsillectomy Additional Past Surgical History / Comment(s): hemorroids, Past Psychological History: No Psychological Hx Reported Smoking Status: Former smoker Past Alcohol Use History: Daily Past Drug Use History: None Reported - Past Family History Father Family Medical History: Cancer Additional Family Medical History / Comment(s): lung cancer General Exam - General Exam Comments Initial Comments: Alert and oriented 71-year-old male. No distress. Limitations: no limitations General appearance: alert, in no apparent distress Head exam: Present: atraumatic, normocephalic, normal inspection Eye exam: Present: normal appearance, PERRL, EOMI. Absent: scleral icterus, conjunctival injection, periorbital swelling ENT exam: Present: normal exam, mucous membranes moist Neck exam: Present: normal inspection. Absent: tenderness, meningismus, lymphadenopathy Respiratory exam: Present: normal lung sounds bilaterally. Absent: respiratory distress, wheezes, rales, rhonchi, stridor Cardiovascular Exam: Present: regular rate, normal rhythm, normal heart sounds. Absent: systolic murmur, diastolic murmur, rubs, gallop, clicks GI/Abdominal exam: Present: soft, normal bowel sounds. Absent: distended, tenderness, guarding, rebound, rigid Extremities exam: Present: normal inspection, full ROM, normal capillary refill, other (Patient has evidence of joint effusion on the left wrist, no overlying erythema. The left wrist is warm to touch. He has pain with range of motion to the left ankle and left wrist.). Absent: tenderness, pedal edema, joint swe lling, calf tenderness Back exam: Present: normal inspection Neurological exam: Present: alert, oriented X3, CN II-XII intact Psychiatric exam: Present: normal affect, normal mood Skin exam: Present: warm, dry, intact, normal color. Absent: rash Course Vital Signs 07/13/21 07/13/21 10:57 13:28 Temperature 98.5 F Pulse Rate 104 H 85 Respiratory 18 18 Rate Blood Pressure 141/93 139/87 O2 Sat by Pulse 97 100 Oximetry Medical Decision Making - Medical Decision Making 71-year-old male with history of chronic gout presents with diffuse joint pain. He complains of pain in the left wrist, left ankle, bilateral knees as well as the right hand. Patient does have some swelling and warmth to the left wrist. No overlying erythema. No abrasions noted over the joints. Lab work was reviewed. He does have elevated ESR. I did advise the Patient that I treat for acute inflammatory condition with a short course of steroids but did advise that he needs follow-up with his director fixed income as well as primary care physician. Patient understands treatment plan will comply. Also advised short course of anti-inflammatories such as indomethacin. Patient understands plan - Lab Data Result diagrams: 07/13/21 11:56 07/13/21 11:56 Lab Results 07/13/21 07/13/21 Range/Units 11:56 11:56 WBC 8.8 (3.8-10.6) k/uL RBC 4.00 L (4.30-5.90) m/uL Hgb 12.4 L (13.0-17.5) gm/dL Hct 35.7 L (39.0-53.0) % MCV 89.2 (80.0-100.0) fL MCH 30.9 (25.0-35.0) pg MCHC 34.7 (31.0-37.0) g/dL RDW 14.0 (11.5-15.5) % Plt Count 198 (150-450) k/uL MPV 7.8 Neutrophils % 74 % Lymphocytes % 14 % Monocytes % 7 % Eosinophils % 1 % Basophils % 0 % Neutrophils # 6.5 (1.3-7.7) k/uL Lymphocytes # 1.3 (1.0-4.8) k/uL Monocytes # 0.6 (0-1.0) k/uL Eosinophils # 0.1 (0-0.7) k/uL Basophils # 0.0 (0-0.2) k/uL ESR 62 H (0-15) mm/hr Sodium 140 (137-145) mmol/L Potassium 4.5 (3.5-5.1) mmol/L Chloride 111 H (98-107) mmol/L Carbon Dioxide 20 L (22-30) mmol/L Anion Gap 9 mmol/L BUN 29 H (9-20) mg/dL Creatinine 1.60 H (0.66-1.25) mg/dL Est GFR (CKD-EPI)AfAm 50 (>60 ml/min/1.73 sqM) Est GFR (CKD-EPI)NonAf 43 (>60 ml/min/1.73 sqM) Glucose 127 H (74-99) mg/dL Uric Acid 6.2 (3.5-8.5) mg/dL Calcium 9.4 (8.4-10.2) mg/dL C-Reactive Protein 3.7 H (<1.0) mg/dL Disposition Clinical Impression: Joint pain, Chronic kidney disease Disposition: HOME SELF-CARE Condition: Good Instructions (If sedation given, give patient instructions): Arthralgia (ED) Additional Instructions: Patient advised to follow-up with director fixed income as discussed. Taking this steroids as prescribed. Patient advised to return to ED if any alarming signs or symptoms occur. Prescriptions: predniSONE [Deltasone] 20 mg PO DIRECTED #12 tab Indomethacin [Indocin] 50 mg PO DAILY #5 capsule Acetaminophen-Codeine 300-30mg [Tylenol w/codeine #3] 1 tab PO Q4H PRN 3 Days #18 tablet PRN Reason: Pain Is patient prescribed a controlled substance at d/c from ED?: Yes If prescribed controlled substance>3 days was MAPS reviewed?: Prescribed <3 Days If opioid is for acute pain is fill amount 7 days or less?: Yes If Rx opioid, was Start Talking consent form obtained?: Yes Referrals: Jamar Soares MD [Primary Care Provider] - 1-2 days Time of Disposition: 13:03
[2021-07-13 12:19] LABS: Basophils % (A) 0 %; Eosinophils # (A) 0.1 k/uL (0-0.7); Eosinophils % (A) 1 %; HCT 35.7 % (39.0-53.0); HGB 12.4 gm/dL (13.0-17.5); Lymphocytes # (A) 1.3 k/uL (1.0-4.8); Lymphocytes % (A) 14 %; MCH 30.9 pg (25.0-35.0); MCHC 34.7 g/dL (31.0-37.0); MCV 89.2 fL (80.0-100.0); Mean Platelet Volume 7.8; Monocytes # (A) 0.6 k/uL (0-1.0); Monocytes % (A) 7 %; Neutrophils # (A) 6.5 k/uL (1.3-7.7); Neutrophils % (A) 74 %; Platelet Count 198 k/uL (150-450); WBC 8.8 k/uL (3.8-10.6)
[2021-07-13 12:34] LABS: Calcium 9.4 mg/dL (8.4-10.2); Potassium 4.5 mmol/L (3.5-5.1); Uric Acid 6.2 mg/dL (3.5-8.5)
[2021-07-13 12:53] LABS: C Reactive Protein 3.7 mg/dL (<1.0)
[2021-07-13 13:32] VITALS: BP 139/87; PULSE 85
[2021-07-13 14:17] LABS: Erythrocyte Sedimentation Rate 62 mm/hr (0-15)
== END 2021-07-13 13:31 | disposition home or self-care (01) ==
LOC: EC 10:55
DX: I12.9 Hypertensive chronic kidney disease with stage 1 through stage 4 chronic kidney disease, or unspecified chronic kidney disease (principal); N18.30 Chronic kidney disease, stage 3 unspecified; M25.50 Pain in unspecified joint; K21.9 Gastro-esophageal reflux disease without esophagitis; M10.9 Gout, unspecified; Z87.891 Personal history of nicotine dependence; Z79.52 Long term (current) use of systemic steroids; Z79.899 Other long term (current) drug therapy
CPT/HCPCS: 36415; 80048; 84550; 85025; 85652; 86140; 99283

== ENCOUNTER 2023-09-08 14:21 | Emergency (ER) | payer MEDICARE ==
--- NOTE | 2023-09-08 14:47 | ED ---
Dizziness HPI - General Source: patient, family Mode of arrival: ambulatory Limitations: no limitations <Ramonita Garcia - Last Filed: 09/08/23 14:46> - General Source: RN notes reviewed, old records reviewed <El Marley - Last Filed: 09/08/23 17:44> - General Stated Complaint: Dizziness,Low blood pressure Time Seen by Provider: 09/08/23 14:46 - History of Present Illness Initial Comments: Quick note: 73-year-old male presented to the ER with chief complaint of dizzin ess and hypotension. Patient sent here by primary care physician for evaluation of low blood pressures. Patient states past couple days he has been having episodes of collapsing. Denies any head injury, loss of consciousness or blood thinner use. Patient is on antihypertensive medications. Denies any other injuries from falls. (Ramonita Garcia) This is a 73-year-old male who presents to the emergency department complaining of being dizzy and having some hypotension. Patient is on 4 medications for high blood pressure. Patient states yesterday he was very lightheaded and his blood pressure was very low and he stated he fell over a couple times did not get injured but states his blood pressure was again low this morning and he felt very lightheaded. Patient states currently he is asymptomatic. Patient denies any chest pain or palpitations. Patient denies any fever patient is nausea vomiting or diarrhea. Patient states he has been eating good as well. (El Marley) - Related Data Home Medications Medication Instructions Recorded Confirmed allopurinoL [Zyloprim] 100 mg PO DAILY 06/14/19 09/08/23 lisinopriL [Zestril] 20 mg PO DAILY 06/14/19 09/08/23 cloNIDine HCL [Catapres] 0.2 mg PO BID 11/15/19 09/08/23 Acetaminophen [Tylenol Arthritis] 650 mg PO Q6H PRN 06/26/21 09/08/23 Ascorbic Acid [Vitamin C] 500 mg PO DAILY 06/26/21 09/08/23 Cholecalciferol [Vitamin D3 (25 50 mcg PO DAILY 06/26/21 09/08/23 Mcg = 1000 Iu)] allopurinoL [Zyloprim] 300 mg PO DAILY 06/26/21 09/08/23 amLODIPine [Norvasc] 5 mg PO DAILY 06/26/21 09/08/23 carvediloL [Coreg] 12.5 mg PO BID-W/MEALS 06/26/21 09/08/23 Atorvastatin [Lipitor] 10 mg PO DAILY 09/08/23 09/08/23 Magnesium 420mg 420 mg PO DAILY 09/08/23 09/08/23 Multivitamins, Thera [Multivitamin 1 tab PO DAILY 09/08/23 09/08/23 (formulary)] Omeprazole 20 mg PO AC-BRKFST 09/08/23 09/08/23 Allergies Allergy/AdvReac Type Severity Reaction Status Date / Time No Known Allergies Allergy Verified 09/08/23 16:19 Review of Systems ROS Other: All systems not noted in ROS Statement are negative. <Ramonita Garcia - Last Filed: 09/08/23 14:46> ROS Other: All systems not noted in ROS Statement are negative. <El Marley - Last Filed: 09/08/23 17:44> ROS Statement: Those systems with pertinent positive or pertinent negative responses have been documented in the HPI. Past Medical History Past Medical History: Cancer, GERD/Reflux, Hypertension Additional Past Medical History / Comment(s): gout, [place],prostate cancer,born with heart defect, History of Any Multi-Drug Resistant Organisms: None Reported Past Surgical History: Appendectomy, Cholecystectomy, Heart Catheterization, Hernia Repair, Prostate Surgery, Tonsillectomy Additional Past Surgical History / Comment(s): hemorroids, Past Psychological History: No Psychological Hx Reported Smoking Status: Former smoker Past Alcohol Use History: Daily Past Drug Use History: None Reported - Past Family History Father Family Medical History: Cancer Additional Family Medical History / Comment(s): lung cancer <Ramonita Garcia - Last Filed: 09/08/23 14:46> General Exam <Ramonita Garcia - Last Filed: 09/08/23 14:46> <El Marley - Last Filed: 09/08/23 17:44> - General Exam Comments Initial Comments: Visual Physical Exam General: Well-appearing, nontoxic, no acute distress. Head: Normocephalic, atraumatic Eyes: PERRLA, EOMI ENT: Airway patent Chest: Nonlabored breathing Skin: No visual rash, normal skin tone Neuro: Alert and oriented 3 Musculoskeletal: No gross abnormalities (Ramonita Garcia) GENERAL: Patient is well-developed and well-nourished. Patient is nontoxic and well- hydrated and is in no acute distress. ENT: Neck is soft and supple. No significant lymphadenopathy is noted. Oropharynx is clear. Moist mucous membranes. Neck has full range of motion without eliciting any pain. EYES: The sclera were anicteric and conjunctiva were pink and moist. Extraocular movements were intact and pupils were equal round and reactive to light. Eyelids were unremarkable. PULMONARY: Unlabored respirations. Good breath sounds bilaterally. No audible rales rhonchi or wheezing was noted. CARDIOVASCULAR: There is a regular rate and rhythm without any murmurs gallops or rubs. ABDOMEN: Soft and nontender with normal bowel sounds. No palpable organomegaly was noted. There is no palpable pulsatile mass. SKIN: Skin is clear with no lesions or rashes and otherwise unremarkable. NEUROLOGIC: Patient is alert and oriented x3. Cranial nerves II through XII are grossly intact. Motor and sensory are also intact. Normal speech, volume and content. Symmetrical smile MUSCULOSKELETAL: Normal extremities with adequate strength and full range of motion. No lower extremity swelling or edema. No calf tenderness. LYMPHATICS: No significant lymphadenopathy is noted PSYCHIATRIC: Normal psychiatric evaluation. (El Marley) Course Vital Signs 09/08/23 09/08/23 15:47 16:39 Temperature 98.2 F Pulse Rate 82 Pulse Rate [ 84 Sitting] Pulse Rate [ 78 Standing] Pulse Rate [ 77 Supine Wall Taper] Respiratory 18 18 Rate Blood Pressure 114/81 Blood Pressure 114/80 [Right Arm Sitting] Blood Pressure 111/74 [Right Arm Standing] Blood Pressure 117/68 [Right Arm Supine] O2 Sat by Pulse 95 97 Oximetry Medical Decision Making <Ramonita Garcia - Last Filed: 09/08/23 14:46> - Lab Data Result diagrams: 09/08/23 16:10 09/08/23 16:10 <El Marley - Last Filed: 09/08/23 17:44> - Medical Decision Making I performed the quick note portion of this chart. Electronically signed by Ramonita Garcia PA-C (Ramonita Garcia) EKG is interpreted by myself but EKG shows a sinus rhythm at 71 bpm parables 173 QRS 126 QT interval is 4 1 QTc is 424. Patient's EKG shows no ST segment ovation or depression Was pt. sent in by a medical professional or institution (, [facility], [facility], urgent care, hospital, or halfway...) When possible be specific @ -No Did you speak to anyone other than the patient for history (EMS, parent, family, police, friend...)? What history was obtained from this source @ -No Did you review nursing and triage notes (agree or disagree)? Why? @ -I reviewed and agree with nursing and triage notes Were old charts reviewed (outside hosp., previous admission, EMS record, old EKG, old radiological studies, urgent care reports/EKG's, halfway records)? Report findings @ -No old charts were reviewed Differential Diagnosis (chest pain, altered mental status, abdominal pain women, abdominal pain men, vaginal bleeding, weakness, fever, dyspnea, syncope, headache, dizziness, GI bleed, back pain, seizure, CVA, palpatations, mental health, musculoskeletal)? @ -Differential Dizziness: Benign paroxysmal positional Vertigo, Menieres disease, otitis media, acoustic neuroma, vertebrobasilar insufficiency, cerebellar stroke, encephalitis, hypovolemic, arrhythmia, coronary artery syndrome, anemia, this is not meant to be an all-inclusive list EKG interpreted by me (3pts min.). @ -As above X-rays interpreted by me (1pt min.). @ -None done CT interpreted by me (1pt min.). @ -None done U/S interpreted by me (1pt. min.). @ -None done What testing was considered but not performed or refused? (CT, X-rays, U/S, labs)? Why? @ -None What meds were considered but not given or refused? Why? @ -None Did you discuss the management of the patient with other professionals (professionals i.e. [facility], [facility], lab, RT, psych nurse, social work case manager, subscription agent, teacher, risk officer, case coordinator)? Give summary @ -Patient had orthostatics done in the emergency department they were normal. Was smoking cessation discussed for >3mins.? @ -No Was critical care preformed (if so, how long)? @ -No Were there social determinants of health that impacted care today? How? (Homelessness, low income, unemployed, alcoholism, drug addiction, transportation, low edu. Level, literacy, decrease access to med. care, alf, rehab)? @ -No Was there de-escalation of care discussed even if they declined (Discuss DNR or withdrawal of care, Hospice)? DNR status @ -No What co-morbidities impacted this encounter? (DM, HTN, Smoking, COPD, CAD, Cancer, CVA, ARF, Chemo, Hep., AIDS, mental health diagnosis, sleep apnea, morbid obesity)? @ -None Was patient admitted / discharged? Hospital course, mention meds given and route, prescriptions, significant lab abnormalities, going to OR and other pertinent info. @ -Patient received some fluids in the emergency department and was asymptomatic throughout his stay. I spoke with the patient about decreasing some of his medications until he can follow-up with his primary medical doctor. Patient also states he will monitor his blood pressure 4 times a day and charted. Undiagnosed new problem with uncertain prognosis? @ -No Drug Therapy requiring intensive monitoring for toxicity (Heparin, Nitro, Insulin, Cardizem)? @ -No Were any procedures done? @ -No Diagnosis/symptom? @ -Default Acute, or Chronic, or Acute on Chronic? @ -Acute Uncomplicated (without systemic symptoms) or Complicated (systemic symptoms)? @ -Complicated Side effects of treatment? @ -No Exacerbation, Progression, or Severe Exacerbation? @ -No Poses a threat to life or bodily function? How? (Chest pain, [place], [place], pneumonia, PE, COPD, DKA, ARF, appy, cholecystitis, CVA, Diverticulitis, Homicidal, Suicidal, threat to staff... and all critical care pts) @ -No Diagnosis/symptom? @ -Acute on chronic renal failure Acute, or Chronic, or Acute on Chronic? @ -Acute on chronic Uncomplicated (without systemic symptoms) or Complicated (systemic symptoms)? @ -Complicated Side effects of treatment? @ -None Exacerbation, Progression, or Severe Exacerbation] @ -No Poses a threat to life or bodily function? @ -No (El Marley) - Lab Data Lab Results 09/08/23 09/08/23 09/08/23 Range/Units 16:10 16:10 16:10 WBC 7.2 (3.8-10.6) k/uL RBC 3.94 L (4.30-5.90) m/uL Hgb 12.7 L (13.0-17.5) gm/dL Hct 37.9 L (39.0-53.0) % MCV 96.3 (80.0-100.0) fL MCH 32.2 (25.0-35.0) pg MCHC 33.4 (31.0-37.0) g/dL RDW 12.9 (11.5-15.5) % Plt Count 207 (150-450) k/uL MPV 8.3 Neutrophils % 68 % Lymphocytes % 18 % Monocytes % 8 % Eosinophils % 2 % Basophils % 1 % Neutrophils # 4.9 (1.3-7.7) k/uL Lymphocytes # 1.3 (1.0-4.8) k/uL Monocytes # 0.6 (0-1.0) k/uL Eosinophils # 0.1 (0-0.7) k/uL Basophils # 0.0 (0-0.2) k/uL PT (10.0-12.5) sec INR (<1.2) APTT (22.0-30.0) sec Sodium 137 (137-145) mmol/L Potassium 4.8 (3.5-5.1) mmol/L Chloride 112 H (98-107) mmol/L Carbon Dioxide 21 L (22-30) mmol/L Anion Gap 4 mmol/L BUN 61 H (9-20) mg/dL Creatinine 2.68 H (0.66-1.25) mg/dL Est GFR (CKD-EPI)AfAm 26 (>60 ml/min/1.73 sqM) Est GFR (CKD-EPI)NonAf 23 (>60 ml/min/1.73 sqM) Glucose 108 H (74-99) mg/dL Calcium 8.7 (8.4-10.2) mg/dL Magnesium 1.8 (1.6-2.3) mg/dL Total Bilirubin 0.7 (0.2-1.3) mg/dL AST 22 (17-59) U/L ALT 19 (4-49) U/L Alkaline Phosphatase 99 (38-126) U/L Troponin I <0.012 (0.000-0.034) ng/mL Total Protein 5.8 L (6.3-8.2) g/dL Albumin 3.3 L (3.5-5.0) g/dL 09/08/23 Range/Units 16:10 WBC (3.8-10.6) k/uL RBC (4.30-5.90) m/uL Hgb (13.0-17.5) gm/dL Hct (39.0-53.0) % MCV (80.0-100.0) fL MCH (25.0-35.0) pg MCHC (31.0-37.0) g/dL RDW (11.5-15.5) % Plt Count (150-450) k/uL MPV Neutrophils % % Lymphocytes % % Monocytes % % Eosinophils % % Basophils % % Neutrophils # (1.3-7.7) k/uL Lymphocytes # (1.0-4.8) k/uL Monocytes # (0-1.0) k/uL Eosinophils # (0-0.7) k/uL Basophils # (0-0.2) k/uL PT 10.4 (10.0-12.5) sec INR 0.9 (<1.2) APTT 24.8 (22.0-30.0) sec Sodium (137-145) mmol/L Potassium (3.5-5.1) mmol/L Chloride (98-107) mmol/L Carbon Dioxide (22-30) mmol/L Anion Gap mmol/L BUN (9-20) mg/dL Creatinine (0.66-1.25) mg/dL Est GFR (CKD-EPI)AfAm (>60 ml/min/1.73 sqM) Est GFR (CKD-EPI)NonAf (>60 ml/min/1.73 sqM) Glucose (74-99) mg/dL Calcium (8.4-10.2) mg/dL Magnesium (1.6-2.3) mg/dL Total Bilirubin (0.2-1.3) mg/dL AST (17-59) U/L ALT (4-49) U/L Alkaline Phosphatase (38-126) U/L Troponin I (0.000-0.034) ng/mL Total Protein (6.3-8.2) g/dL Albumin (3.5-5.0) g/dL Disposition <Ramonita Garcia - Last Filed: 09/08/23 14:46> Is patient prescribed a controlled substance at d/c from ED?: No Time of Disposition: 17:44 <El Marley - Last Filed: 09/08/23 17:44> Clinical Impression: Acute on chronic renal failure, Dizziness, Hypotension Disposition: HOME SELF-CARE Condition: Good Additional Instructions: Patient should take 0.1 of Catapres twice a day instead of 0.2. Patient should also take 10 mg lisinopril in the morning instead of 20. Patient needs to follow-up with his primary medical care doctor this week and have repeat labs done because of his increasing creatinine level. Referrals: Jamar Soares MD [Primary Care Provider] - 1-2 days
[2023-09-08 16:14] VITALS: RESP 18; TEMP 98.2
[2023-09-08 16:18] LABS: Basophils % (A) 1 %; Eosinophils # (A) 0.1 k/uL (0-0.7); Eosinophils % (A) 2 %; HCT 37.9 % (39.0-53.0); HGB 12.7 gm/dL (13.0-17.5); Lymphocytes # (A) 1.3 k/uL (1.0-4.8); Lymphocytes % (A) 18 %; MCH 32.2 pg (25.0-35.0); MCHC 33.4 g/dL (31.0-37.0); MCV 96.3 fL (80.0-100.0); Mean Platelet Volume 8.3; Monocytes # (A) 0.6 k/uL (0-1.0); Monocytes % (A) 8 %; Neutrophils # (A) 4.9 k/uL (1.3-7.7); Neutrophils % (A) 68 %; Platelet Count 207 k/uL (150-450); RBC 3.94 m/uL (4.30-5.90); RDW 12.9 % (11.5-15.5); WBC 7.2 k/uL (3.8-10.6)
[2023-09-08 16:27] LABS: ALT 19 U/L (4-49); AST 22 U/L (17-59); African American GFR (CKD) 26 (>60 ml/min/1.73 sqM); Albumin 3.3 g/dL (3.5-5.0); Alkaline Phosphatase 99 U/L (38-126); Anion Gap 4 mmol/L; Blood Urea Nitrogen 61 mg/dL (9-20); Calcium 8.7 mg/dL (8.4-10.2); Carbon Dioxide 21 mmol/L (22-30); Chloride 112 mmol/L (98-107); Glucose 108 mg/dL (74-99); Magnesium 1.8 mg/dL (1.6-2.3); Non-African American GFR(CKD) 23 (>60 ml/min/1.73 sqM); Potassium 4.8 mmol/L (3.5-5.1); Sodium 137 mmol/L (137-145); Total Bilirubin 0.7 mg/dL (0.2-1.3); Total Protein 5.8 g/dL (6.3-8.2)
[2023-09-08 16:48] LABS: INR 0.9 (<1.2); Partial Thromboplastin Time 24.8 sec (22.0-30.0); Prothrombin Time 10.4 sec (10.0-12.5)
[2023-09-08 17:05] VITALS: BP 117/68; PULSE 77
== END 2023-09-08 18:00 | disposition home or self-care (01) ==
LOC: EC 14:21
DX: I12.9 Hypertensive chronic kidney disease with stage 1 through stage 4 chronic kidney disease, or unspecified chronic kidney disease (principal); I95.9 Hypotension, unspecified; N17.9 Acute kidney failure, unspecified; N18.1 Chronic kidney disease, stage 1; Z79.899 Other long term (current) drug therapy; Z87.891 Personal history of nicotine dependence
CPT/HCPCS: 36415; 80053; 83735; 84484; 85025; 85610; 85730; 93005; 99285